=== PATIENT | male | born 1965 | race African-American/Black ===

== ENCOUNTER 2018-04-09 12:32 | Inpatient (IN) | payer OTHER ==
[~2018-04-09 12:32] MED LIST: CEFAZOLIN 2 GM/D5W 2 GM/50 ML ML IVPB ONE
--- NOTE | 2018-04-09 13:08 | PDOC ---
History of Present Illness - General Stated Complaint: ABD PAIN Time Seen by Provider: 04/09/18 12:38 History Source: Patient - History of Present Illness Initial Comments: 04/09/18 13:03 Pt is a 52yo M with PMH of HTN, DM, Asthma BIBA for abdominal pain and chest pain. Pt states around 1 hour ago he was walking when he broke out into a sweat , started feeling nauseous and developed diffuse abdominal pain and chest pain. He also started to feel short of breath. Denies cough, hemoptysis, back pain, neck pain, syncope, palpitations, fevers, chills, vomiting, diarrhea, constipation, urinary symptoms, headache, numbness/tingling. He states that he only takes his medications when he feels like it. Denies alcohol, tobacco, IV and illicit drug use. PMD: Tosha? PMH: see hpi PSH: none Meds: ? Allergies: nkda Social: denies Past History - Past Medical History Allergies/Adverse Reactions: Allergies Allergy/AdvReac Type Severity Reaction Status Date / Time No Known Drug Allergies Allergy Verified 04/09/18 13:14 Home Medications: Ambulatory Orders NK [No Known Home Medication] 04/09/18 Review of Systems - Review of Systems Constitutional: No: Chills, Fever HEENTM: No: Symptoms Reported Respiratory: Yes: Shortness of Breath Cardiac (ROS): Yes: Chest Pain. No: Lightheadedness, Palpitations, Syncope ABD/GI: Yes: Nausea, Abdominal cramping. No: Constipated, Diarrhea, Rectal Bleeding, Vomiting : No: Burning, Dysuria Musculoskeletal: No: Back Pain, Joint Pain, Neck Pain Integumentary: No: Symptoms Reported Neurological: No: Headache, Numbness, Paresthesia, Tingling *Physical Exam - Physical Exam General Appearance: Yes: Nourished, Appropriately Dressed, Other (somnolent). No: Apparent Distress HEENT: positive: EOMI, SULAIMAN, Normal ENT Inspection, Pharynx Normal Neck: positive: Trachea midline, Supple. negative: Carotid bruit, Lymphadenopathy (R), Lymphadenopathy (L) Respiratory/Chest: positive: Lungs Clear, Normal Breath Sounds. negative: Crackles, Rales, Rhonchi, Stridor, Wheezing Cardiovascular: positive: Regular Rhythm, Regular Rate, S1, S2. negative: Edema , JVD, Murmur Vascular Pulses: Carotid (R): 2+, Carotid (L): 2+, Dorsalis-Pedis (R): 2+, Doralis-Pedis (L): 2+ Gastrointestinal/Abdominal: positive: Tender (diffuse tenderness with light palpation), Soft. negative: Pulsatile Mass, Guarding, Rebound, Hernia, Mass Musculoskeletal: negative: CVA Tenderness Extremity: positive: Normal Capillary Refill, Pelvis Stable. negative: Pedal Edema, Swelling Integumentary: positive: Normal Color, Dry, Warm Neurologic: positive: relay tester II-XII NML intact, Fully Oriented, Alert, Normal Mood/ Affect, Motor Strength 07/18 ED Treatment Course - LABORATORY CBC & Chemistry Diagram: 04/09/18 13:20 04/09/18 13:38 - RADIOLOGY Radiology Studies Ordered: Category Date Time Status CHEST X-RAY PORTABLE* [RAD] Stat Radiology 04/09/18 13:00 Ordered Medical Decision Making - Medical Decision Making 04/09/18 13:19 Pt is a 52yo M with PMH of HTN, DM, Asthma BIBA for abdominal pain and chest pain. Pt states around 1 hour ago he was walking when he broke out into a sweat , started feeling nauseous and developed diffuse abdominal pain and chest pain. Vitals: BP 146/112, afebile, saturating well on RA PE: diffuse abdominal tenderness Ddx includes but not limited to Dissection, AAA, ACS, PNA, gastritis, colitis Higher suspicion for ACS causes. cbc, cmp, trop, coag, t+s ordered. EKG, CXR CTA chest and abdomen pelvis ordered IV tylenol for pain. labs significant for WBC 15.3 Cr 1.4, not sure what is pt baseline CT pending. BP elevated. Pt thinks he takes lisinopril. Cr 1.4. will give labetalol 100mg. CT shows pneumoperitioneum. Dr. Santana consulted. Recommended OR. Will admit. Pt will go to OR. *DC/Admit/Observation/Transfer Diagnosis at time of Disposition: Perforated abdominal viscus - Discharge Dispostion Condition at time of disposition: Stable Decision to Admit order: Yes - Referrals - Patient Instructions - Post Discharge Activity
[2018-04-09 13:14] VITALS: BMI 32.5
[2018-04-09] MEDS ORDERED: ACETAMINOPHEN 1000 MG/100 ML VIAL (NON FORMULARY) IVPB ONE (13:15)
[2018-04-09] MEDS ORDERED: SODIUM CHLORIDE 1,000 ML IV STA (13:15)
[2018-04-09] MEDS ORDERED: ACETAMINOPHEN INJECTION 100 ML IVPB ONE ×3 (13:18→22:45)
[2018-04-09] MEDS ORDERED: METOCLOPRAMIDE HCL INJECTION 10 MG/2 ML VIAL IVPUSH ONE (13:20)
[2018-04-09] MEDS ORDERED: METOCLOPRAMIDE HCL INJECTION 10 MG/2 ML VIAL ONE (13:34)
--- NOTE | 2018-04-09 14:07 | PDOC ---
Attending Attestation - HPI HPI: 04/09/18 14:07 The patient is a 52 year old male with a past medical history of HTN, diabetes, and asthma (patient non compliant with medication) brought in today by EMS today for evaluation of abdominal pain and shortness of breath. The patient reports that he was walking 1 hour ago when he felt a sudden onset of diffuse abdominal pain, diaphoresis, chest pain, nausea, and shortness of breath. He notes his symptoms are worse with movement. He called 911 after his symptoms began. Patient denies headache, lightheadedness. Denies fever, chills. Denies vomiting , diarrhea. Denies lower extremity edema. Social history: Patient denies alcohol and drug use. Patient confirms occasional tobacco use. PCP: none reported - Physicial Exam PE: 04/09/18 14:07 Vitals: Triage vital signs reviewed General Appearance: No acute distress, well nourished, well developed Head: Atraumatic Chest Wall: Nontender Cardiac: Regular rate and rhythm, no murmurs, no rubs, no gallops Lungs: Clear to auscultation bilateral, good air movement bilaterally Abdomen: +diffuse abdominal tenderness with maximum tenderness in the right lower quadrant. Soft, nondistended, normal bowel sounds Extremities: Full range of motion to all extremities, no cyanosis, clubbing, or edema Skin: Warm and dry, no rashes or lesions, no rash, no petechiae Psych: Normal mood, normal affect - Medical Decision Making 04/09/18 14:07 Documentation prepared by JAUN Sierra, acting as medical reviewer for Ruben Odell MD. The patient is a 52 year old male with a past medical history of HTN, diabetes, and asthma (patient non compliant with medication) brought in today by EMS today for evaluation of abdominal pain and shortness of breath. <León Garcia - Last Filed: 04/09/18 14:07> - Resident Resident Name: Celina Mart - ED Attending Attestation I have performed the following: I have examined & evaluated the patient, The case was reviewed & discussed with the resident, I agree w/resident's findings & plan, Exceptions are as noted - Medical Decision Making 04/09/18 16:08 Heart score for chest and abdominal discomfort with a diffuse abdominal pain differential diagnosis includes ACS acute abdominal process versus less likely dissection Equal pulses in all extremities however given this combination of symptomatology we'll check labs EKG troponin CTA chest abdomen pelvis to rule out life-threatening etiology Dr. Mckinnon to follow up CTA and dispo <Ruben Odell - Last Filed: 04/09/18 16:09> Heart Score/ECG Review - History History: Moderately suspicious - Electrocardiogram EKG: Normal - Age Age: 45-65 - Risk Factors Risk Factors Heart Score: Yes Hx Hypercholesterolemia, Yes Hx Hypertension, Yes Hx Diabetes Based on the list above the patient has:: >/=3 risk factors or Hx atherosclerotic disease - Troponin Troponin: </= normal limit - Score Heart Score - Total: 4 - ECG Impressions Comment:: 04/09/18 16:07 EKG performed at 1304 demonstrates normal sinus rhythm incomplete right bundle- branch block no ST elevations or T-wave inversions. Interpreted by me. <Ruben Odell - Last Filed: 04/09/18 16:09>
[2018-04-09 14:20] LABS: BASO % 0.2 % (0-2.0); EOS % 0.2 % (0-4.5); HEMATOCRIT 40.9 % (35.4-49); HEMOGLOBIN 13.9 GM/dL (11.7-16.9); MEAN CELL VOLUME 94.1 fl (80-96); MEAN PLT VOLUME 8.7 fl (7.5-11.1); MONO % 4.9 % (3.8-10.2); NEUT % 87.7 % (42.8-82.8); PLATELET COUNT 216 K/MM3 (134-434); RBC 4.35 M/mm3 (4.00-5.60); RDW 15.3 % (11.9-15.9); WHITE BLOOD COUNT 15.3 K/mm3 (4.0-10.0)
[2018-04-09 14:39] LABS: ALBUMIN 3.8 g/dl (3.4-5.0); ALK PHOS 96 U/L (45-117); ANION GAP 7 MMOL/L (8-16); BILIRUBIN,TOTAL 0.7 mg/dL (0.2-1); BLOOD UREA NITROGEN 24 mg/dL (7-18); CHLORIDE 102 mmol/L (98-107); CO2 31 mmol/L (21-32); CREATININE 1.4 mg/dL (0.55-1.3); GLUCOSE,RANDOM 83 mg/dL (74-106); LIPASE 123 U/L (73-393); POTASSIUM 3.6 mmol/L (3.5-5.1); SGOT/AST 23 U/L (15-37); SGPT/ALT 29 U/L (13-61); SODIUM 140 mmol/L (136-145)
[2018-04-09 14:46] LABS: INR 1.14 (0.83-1.09); PROTHROMBIN TIME (PATIENT) 13.5 SEC (9.7-13.0)
--- NOTE | 2018-04-09 15:52 | EKG ---
Test Reason : Blood Pressure : / mmHG Vent. Rate : 088 BPM Atrial Rate : 088 BPM P-R Int : 152 ms QRS Dur : 102 ms QT Int : 386 ms P-R-T Axes : 059 -13 039 degrees QTc Int : 467 ms NORMAL SINUS RHYTHM NORMAL ECG NO PREVIOUS ECGS AVAILABLE Confirmed by IAN SHEPHERD, DANIELLE ([id number]) on 04/09/2018 3:52:20 PM Referred By: Confirmed By:DANIELLE SOSA MD
[2018-04-09] MEDS ORDERED: LABETALOL HCL 100 MG TABLET (FP) PO ONE (16:24)
[2018-04-09] MEDS ORDERED: LABETALOL HCL 100 MG TABLET (FP) ONE (16:38)
--- NOTE | 2018-04-09 19:53 | PN ---
Teaching Attending Note Name of Resident: Garett Gaspar ATTENDING PHYSICIAN STATEMENT I saw and evaluated the patient. I reviewed the resident's note and discussed the case with the resident. I agree with the resident's findings and plan as documented. SUBJECTIVE: Seen and examined; please see resident note for further historical details. At 2PM 10/10 intensity R_sided then genaralized abdominal pain and called 911 due to this. He was ambulating, no trauma, etc. Last BM yesterday normal caliber no blood, etc. No dietary changes. Doesn't abuse NSAIDS. He was found on CT done in ER to have pneumoperitoneum with fluid around the duodenum. The pain he experienced wasn't related to food. No history of surgeries. Limited history regarding this as he was being rushed to the OR. VS initially were afebrile with normotension to HTN; got APAP in the ER. Dr. Santana is following ; appreciate the specialist presence on the case. 10 sys ROS done and negative aside from HPI PMH (HTN, DM, Asthma); denied PSH FH asked and noncontributory Social hx reviewed Medication list pending; this is his first time here and he states he doesn't take any home meds for the HTN or DM. Needs further investigated. OBJECTIVE: VS, labs, imaging reviewed Mild distress, AAO, resting in bed NC AT EOMI PERRLA Abdomen tender diffusely with rebound and guarding RRR s1/2 no mgr Lungs CTAB w/ sym exp CN2-12 wnl, no fnd Normal mood, appropriate affect CT shows pneumoperitoneum and some free intraperitoneal fluid in the right upper abdomen. No CT evidence of dissection or aneurysm. 3mm nonobstructing right renal calculus. Mild bilateral adrenal gland thickening probably representing hyperplasia vs. subcentimeter adenomas. Biochemical testing suggested as well as [address]/MRI followup. ASSESSMENT AND PLAN: Patient presents with bowel perforation; is in OR now with Dr. Santana. Plan for broad spectrum abx, fluids, identification for source of the perf and treatment. 1) Bowel Perforation -Cause unknown at this time; given the duodenal involvement on the CT will need to r/o ulcers, etc. Waiting on surgical report and will discuss with surgical team. In the interem will cover with broad spectrum abx and depending on operative results and post op stability will decide dispo. He will be covered with Zosyn and we will consult ID. We will start him on IV PPI QD. Of course, we will adjust overall therapy based on the cause of the said perforation. 2) JOSE ANTONIO -Cr 1.4; likely prerenal given the global picture. He does have risks for CKD though so this could be pharmaceutical representative of a baseline for him. We will plan to trend the BMP and monitor his urine output. 3) HTN -Keep BP <160 when inpatinet; use PRNs. Eval if will need home meds on DC 4) DM -SSI; keep fsg <180 5) Adrenal gland thickening -OP Biochemical testing and 3 month FU imaging 6) Nonobstructing R-renal calculus -Noted; address if any additional sx, etc. DANDREA -LR@100 -PRN replete -NPO -Bedrest for now DVT px: Hep SQ starting tomorrow Full Code
[2018-04-09] MEDS ORDERED: LACTATED RINGERS SOLUTION 1,000 ML/1,000 ML INFUS.BAG IV SCH (20:00)
--- NOTE | 2018-04-09 20:17 | CONSULT ---
- Consultation REQUESTING PROVIDER: Terrence Thrasher MD CONSULT REQUEST: We have been asked to surgically evaluate this patient for ( specify). PCP:Gideon Arnold MD HISTORY OF PRESENT ILLNESS:CTSP for evaluation and management of upper abdominal pain found to be secondary to pneumoperitoneum; patient developed sudden onset epigastriac/RUQ abdominal pain w/ radiation to the back. He had associated CP and SOB and nausea w/o vomiting; he came to the ER for evaluation. PMHx: he cannot state PSHx: none Home Medications Medication Instructions Recorded Unobtainable 04/09/18 Allergies Allergy/AdvReac Type Severity Reaction Status Date / Time No Known Drug Allergies Allergy Verified 04/09/18 13:14 REVIEW OF SYSTEMS: unobtainable; patient was not cooperative PHYSICAL EXAM: GENERAL: Awake, alert, and fully oriented, in acute distress. HEAD: Normal with no signs of trauma. EYES: sclera anicteric, conjunctiva clear. NECK: Normal ROM, supple without lymphadenopathy, JVD, or masses. ABDOMEN: Soft,tender, distended, absent bowel sounds, positive guarding, positive rebound, no masses. No organomegaly.? RIH MUSCULOSKELETAL: Normal ROM at all joints. No bony deformities or tenderness. No CVA tenderness. UPPER EXTREMITIES: 2+ pulses, warm, well-perfused. No cyanosis. Cap refill <2 seconds. No peripheral edema. LOWER EXTREMITIES: 2+ pulses, warm, well-perfused. No calf tenderness. No peripheral edema. NEUROLOGICAL: Normal speech, gait not observed. PSYCH: Fairly Cooperative. Poor eye contact. Appropriate mood and affect. SKIN: Warm, dry, normal turgor, no rashes or lesions noted. Vital Signs Temperature 98.5 F 04/09/18 18:15 Pulse Rate 86 04/09/18 18:15 Respiratory Rate 16 04/09/18 18:15 Blood Pressure 152/100 04/09/18 18:15 O2 Sat by Pulse Oximetry (%) 97 04/09/18 18:15 Lab Results WBC 15.3 K/mm3 (4.0-10.0) H 04/09/18 13:20 RBC 4.35 M/mm3 (4.00-5.60) 04/09/18 13:20 Hgb 13.9 GM/dL (11.7-16.9) 04/09/18 13:20 Hct 40.9 % (35.4-49) 04/09/18 13:20 MCV 94.1 fl (80-96) 04/09/18 13:20 MCHC 34.0 g/dl (32.0-35.9) 04/09/18 13:20 RDW 15.3 % (11.9-15.9) 04/09/18 13:20 Plt Count 216 K/MM3 (134-434) 04/09/18 13:20 Sodium 140 mmol/L (136-145) 04/09/18 13:38 Potassium 3.6 mmol/L (3.5-5.1) 04/09/18 13:38 Chloride 102 mmol/L (98-107) 04/09/18 13:38 Carbon Dioxide 31 mmol/L (21-32) 04/09/18 13:38 Anion Gap 7 MMOL/L (8-16) L 04/09/18 13:38 BUN 24 mg/dL (7-18) H 04/09/18 13:38 Creatinine 1.4 mg/dL (0.55-1.3) H 04/09/18 13:38 Random Glucose 83 mg/dL (74-106) 04/09/18 13:38 Calcium 9.0 mg/dL (8.5-10.1) 04/09/18 13:38 Blood Type B POSITIVE 04/09/18 18:42 Antibody Screen Negative 04/09/18 13:44 INR 1.14 (0.83-1.09) H 04/09/18 13:38 Imamging w/u to date reviewed w/ Radiologist and c/w pneumoperitoneum. PLAN: For ex-lap possible Edwardo patch closure of perforated DU and AOSDN; informed consent obtained; r/b/t//a's d/w him and informed consent obtained. Wily Santana MD FACS
--- NOTE | 2018-04-09 20:20 | HP ---
CHIEF COMPLAINT: Abdominal pain PCP: Dr. Quiles HISTORY OF PRESENT ILLNESS: 52 yo M with history of HTN, DM, and asthma who presents today with diffuse severe 10/10 abdominal pain which happened suddenly while walking around 2pm today. Pt reports his last BM was yesterday with normal caliber and quality without any blood. Pt denies any associated pain with meals prior to this event. Pt denies any surgeries. Pt reports having any unusual foods at this point and has stuck to a regular diet without dining at any exotic locations. He denies any prior endoscopies to date and has never been told he had H. Pylori before. Pt denies any n/v currently, headaches, lightheadedness, SOB, CP/ discomfort, palpitations, diarrhea, constipation, dysuria, polyuria. Of note, pt has never been told he has kidney problems in the past and has never had urological procedures performed. Recent Travel: Denies PAST MEDICAL HISTORY: HTN DM Asthma --No medications reported by patient PAST SURGICAL HISTORY: None Social History: Smoking: denies Alcohol: Denies Drugs: Denies Family History: Noncontributory Allergies No Known Drug Allergies Allergy (Verified 04/09/18 13:14) HOME MEDICATIONS: Home Medications Medication Instructions Recorded Unobtainable 04/09/18 REVIEW OF SYSTEMS As per HPI PHYSICAL EXAMINATION Vital Signs - 24 hr 04/09/18 04/09/18 04/09/18 13:05 14:29 14:35 Temperature 98.1 F Pulse Rate 86 Pulse Rate [ 94 H Apical] Respiratory 18 20 Rate Blood Pressure 146/112 H Blood Pressure 180/108 H [Left Arm] O2 Sat by Pulse 97 97 98 Oximetry (%) 04/09/18 04/09/18 16:49 18:15 Temperature 98.5 F Pulse Rate Pulse Rate [ 95 H 86 Apical] Respiratory 16 16 Rate Blood Pressure Blood Pressure 168/101 H 152/100 [Left Arm] O2 Sat by Pulse 98 97 Oximetry (%) GENERAL: NAD, awake, alert, and fully oriented HEENT: NC/AT, MARGARITO, sclera anicteric, MMM NECK: No JVD LUNGS: CTA bilaterally. No wheezes, and no crackles. No accessory muscle use. On RA HEART: RRR, normal S1 and S2 without murmur ABDOMEN: Soft, nondistended, diffusely tender with R>L, bowel sounds absent, guarding present, no ecchymotic areas noted. No masses appreciated. MUSCULOSKELETAL: No CVA tenderness. EXTREMITIES: 2+ distal pulses throughout, warm, well-perfused. No peripheral edema. NEUROLOGICAL: nonfocal exam. speech normal. gait not observed PSYCHIATRIC: Cooperative. Good eye contact. Appropriate mood and affect. SKIN: Warm, dry, no rashes or lesions noted Laboratory Results 04/09/18 04/09/18 04/09/18 13:20 13:38 13:38 WBC 15.3 H RBC 4.35 Hgb 13.9 Hct 40.9 MCV 94.1 MCH 32.0 MCHC 34.0 RDW 15.3 Plt Count 216 MPV 8.7 Absolute Neuts (auto) 13.4 H Neutrophils % 87.7 H Lymphocytes % 7.0 L Monocytes % 4.9 Eosinophils % 0.2 Basophils % 0.2 Nucleated RBC % 0 PT with INR INR Sodium 140 Potassium 3.6 Chloride 102 Carbon Dioxide 31 Anion Gap 7 L BUN 24 H Creatinine 1.4 H Creat Clearance w eGFR 53.43 Random Glucose 83 Calcium 9.0 Total Bilirubin 0.7 AST 23 ALT 29 Alkaline Phosphatase 96 Troponin I < 0.02 Total Protein 8.0 Albumin 3.8 Lipase 123 Blood Type Antibody Screen ASSESSMENT/PLAN: Bowel perforation likely 2/2 to duodenal ulceration Hypertension Diabetes Mellitus Acute vs. chronic kidney dysfunction Renal Cyst Incidental adrenal pathology --Pneumoperitoneum and free fluid around duodenum found on CT indicative of bowel perforation likely 2/2 to duodenal ulceration --Surgery on board; to be taken to OR tonight --F/u OR reports --If ulceration confirmed will likely need H. Pylori testing --Avoid any NSAID use at this point --Pain control post-op per surgery --LR @100cc/hr --Protonix 40mg qDaily --Cover with Zosyn 3.375gm q8h IVPB for coverage including anaerobe --HTN noted on initial VS, however likely 2/2 to pain; goal <160 systolic ideal --Monitor after pain control and can use PRN medications if needed --Pt reports no medication use at home --BGM ACHS and can use ISS for coverage with goal <180 during hospitalization --A1c ordered for AM labs --Renal cyst 10.7cm on CT A/P found; will need follow-up on an outpatient basis --Adrenal thickening found incidentally on CT A/P will need 3 mo. f/u of CT vs. MRI on an outpatient basis FEN: Fluids: As above Electrolyte abnormalities: None Nutrition: Strict NPO PPX: DVT - SCDs for now GI - As above Code status: Full code Dispo: Admit to telemetry Case discussed with Dr. Catalina Gaspar, DO - IM PGY-2 Visit type - Emergency Visit Emergency Visit: Yes ED Registration Date: 04/09/18 Care time: The patient presented to the Emergency Department on the above date and was hospitalized for further evaluation of their emergent condition. - New Patient This patient is new to me today: Yes Date on this admission: 04/09/18 - Critical Care Critical Care patient: No
[2018-04-09] MEDS ORDERED: ceFAZolin 2 GRAM PREMIX BAG IVPB ONE (20:59)
[2018-04-09] MEDS ORDERED: fentaNYL CITRATE 250 MCG/5 ML VIAL ONE ×2 (21:03)
[2018-04-09] MEDS ORDERED: PROPOFOL 20 ML ONE (21:04)
[2018-04-09] MEDS ORDERED: MIDAZOLAM HCL 2 MG/2 ML SINGLE DOSE VIAL ONE (21:04)
[2018-04-09] MEDS ORDERED: ROCURONIUM BROMIDE 50 MG/5 ML VIAL ONE (21:04)
[2018-04-09] MEDS ORDERED: CEFAZOLIN 2 GM/D5W 2 GM/50 ML ML IVPB ONE ×2 (21:15→23:13)
[2018-04-09] MEDS ORDERED: LIDOCAINE HCL/PF 2% SDV 5ML VIAL ONE (21:36)
[2018-04-09] MEDS ORDERED: ceFAZolin SODIUM 1 GM VIAL IVPB ONE (21:36)
[2018-04-09] MEDS ORDERED: ceFAZolin SODIUM 1 GM VIAL ONE (21:36)
[2018-04-09] MEDS ORDERED: DEXAMETHASONE SOD PHOSPHATE 4 MG/1 ML VIAL ONE (21:36)
[2018-04-09] MEDS ORDERED: ONDANSETRON 4 MG/2 ML VIAL ONE ×2 (21:36→22:14)
[2018-04-09] MEDS ORDERED: NEOSTIGMINE METHYLSULFATE 0.5 MG/1 ML - 10 ML MDV ONE (22:13)
[2018-04-09] MEDS ORDERED: GLYCOPYRROLATE 0.2 MG/1 ML VIAL ONE (22:14)
--- NOTE | 2018-04-09 22:26 | OP ---
Operative Note - Note: Operative Date: 04/09/18 Pre-Operative Diagnosis: perforated viscus Operation: laparotomy; Edwardo patch closure of perforated pyloric channel ulcer Findings: perforated pyloric channel ulcer Post-Operative Diagnosis: Other (perforated pyloric channel ulcer) Surgeon: Wily Santana Curator [employer]: Raúl Jaramillo Anesthesiologist/GAS MAIN FITTER: Cyndee Ag Anesthesia: General Estimated Blood Loss (mls): 20
--- NOTE | 2018-04-09 22:34 | SURG ---
Surgery Slide Fastener Chain Assembler Note Slide Fastener Chain Assembler: Raúl Jaramillo PA-C Date of Service: 04/09/18 Diagnosis: perforated viscus Procedure: laparotomy; Edwardo patch closure of perforated pyloric channel ulcer I was present for the entirety of the operative procedure. For further detail, please refer to operative report. Visit type - Case Type Case Type: ED Admission - Emergency Emergency Visit: Yes ED Registration Date: 04/09/18 Care time: The patient presented to the Emergency Department on the above date and was hospitalized for further evaluation of their emergent condition. - New patient This patient is new to me today: Yes Date on this admission: 04/09/18
[2018-04-09] MEDS ORDERED: ONDANSETRON 4 MG/2 ML VIAL IVPUSH PRN (22:36)
[2018-04-09] MEDS ORDERED: LABETALOL HCL 5 MG/1 ML (100MG/20 ML VIAL) IVPUSH PRN (22:38)
[2018-04-09] MEDS: LACTATED RINGERS SOLUTION 1,000 ML IV SCH (22:45)
[2018-04-09] MEDS: HYDROmorphone *PCA* 10MG/50ML DISP.SYRIN PCA SCH (22:55)
[2018-04-09] MEDS: ACETAMINOPHEN 1000 MG/100 ML VIAL (NON FORMULARY) IVPB ONE (23:44)
[2018-04-10] MEDS: HYDROmorphone *PCA* 10MG/50ML DISP.SYRIN PCA SCH ×2 (00:33→21:55)
[2018-04-10] MEDS: ACETAMINOPHEN 1000 MG/100 ML VIAL (NON FORMULARY) IVPB ONE (00:34)
[2018-04-10] MEDS: LACTATED RINGERS SOLUTION 1,000 ML IV SCH ×3 (04:03→21:54)
[2018-04-10] MEDS ORDERED: CEFAZOLIN 2 GM/D5W 2 GM/50 ML ML IVPB ONE (06:00)
[2018-04-10 07:34] LABS: BASO % 0.1 % (0-2.0); HEMATOCRIT 36.7 % (35.4-49); HEMOGLOBIN 12.6 GM/dL (11.7-16.9); LYMPH % 7.8 % (8-40); MCH 32.2 pg (25.7-33.7); MCHC 34.3 g/dl (32.0-35.9); MEAN CELL VOLUME 93.9 fl (80-96); MEAN PLT VOLUME 8.7 fl (7.5-11.1); MONO % 5.8 % (3.8-10.2); NEUT % 86.3 % (42.8-82.8); PLATELET COUNT 187 K/MM3 (134-434); RBC 3.91 M/mm3 (4.00-5.60); RDW 14.8 % (11.9-15.9); WHITE BLOOD COUNT 13.9 K/mm3 (4.0-10.0)
[2018-04-10 08:13] LABS: ALBUMIN 2.7 g/dl (3.4-5.0); ALK PHOS 72 U/L (45-117); ANION GAP 9 MMOL/L (8-16); BILIRUBIN,TOTAL 0.7 mg/dL (0.2-1); BLOOD UREA NITROGEN 23 mg/dL (7-18); CALCIUM 8.2 mg/dL (8.5-10.1); CHLORIDE 102 mmol/L (98-107); CO2 28 mmol/L (21-32); CREATININE 1.3 mg/dL (0.55-1.3); GLUCOSE,RANDOM 127 mg/dL (74-106); POTASSIUM 3.9 mmol/L (3.5-5.1); SGOT/AST 21 U/L (15-37); SGPT/ALT 29 U/L (13-61); SODIUM 138 mmol/L (136-145); TOT PROT 6.2 g/dl (6.4-8.2)
--- NOTE | 2018-04-10 09:41 | PN ---
Progress Note (short form) - Note Progress Note: Post op day#!.S/P Expl Lapratomy with repair of perforated ulcer under GA uneventfu.Patient stable and c/o pain score of 6-7/10 on Dilaudai RESEARCH PHYSICIST but is not using RESEARCH PHYSICIST properly.So advised the patient to push the RESEARCH PHYSICIST or you will not get the medication.Will continue RESEARCH PHYSICIST and will f/u tomorrow.
[2018-04-10] MEDS ORDERED: PT OWN MED DRAWER 7, Y5N ONE (09:47)
[2018-04-10] MEDS: PANTOPRAZOLE SODIUM 40 MG VIAL IVPUSH SCH (09:50)
[2018-04-10] MEDS ORDERED: PANTOPRAZOLE SODIUM 40 MG VIAL IVPUSH SCH (10:00)
[2018-04-10] MEDS ORDERED: PIPERACILLIN/TAZOB 3.375 GM 3.375 GM in DEXTROSE 5%-WATER - 50 ML IVPB SCH (10:00)
--- NOTE | 2018-04-10 13:20 | PN ---
Physical Exam: SUBJECTIVE: Patient seen and examined. He has no complaints. Pain is controlled. OBJECTIVE: Vital Signs Period Temp Pulse Resp BP Sys/Romero Pulse Ox Last 24 Hr 97.4 F-99 F 54-130 14-20 105-180/64-114 90-100 GENERAL: The patient is awake, alert, and fully oriented, in no acute distress. LUNGS: Breath sounds equal, clear to auscultation bilaterally, no wheezes, no crackles, no accessory muscle use. HEART: Regular rate and rhythm, S1, S2 without murmur, rub or gallop. ABDOMEN: Obese, soft, non-tender, (+) mild distention, no bowel sounds, no guarding, no rebound, no hepatosplenomegaly, no masses. EXTREMITIES: 2+ pulses, warm, well-perfused, no edema. Laboratory Results - last 24 hr 04/09/18 04/09/18 04/09/18 13:20 13:38 13:38 WBC 15.3 H RBC 4.35 Hgb 13.9 Hct 40.9 MCV 94.1 MCH 32.0 MCHC 34.0 RDW 15.3 Plt Count 216 MPV 8.7 Absolute Neuts (auto) 13.4 H Neutrophils % 87.7 H Lymphocytes % 7.0 L Monocytes % 4.9 Eosinophils % 0.2 Basophils % 0.2 Nucleated RBC % 0 PT with INR INR Sodium 140 Potassium 3.6 Chloride 102 Carbon Dioxide 31 Anion Gap 7 L BUN 24 H Creatinine 1.4 H Creat Clearance w eGFR 53.43 POC Glucometer Random Glucose 83 Hemoglobin A1c % Calcium 9.0 Phosphorus Magnesium Total Bilirubin 0.7 AST 23 ALT 29 Alkaline Phosphatase 96 Troponin I < 0.02 Total Protein 8.0 Albumin 3.8 Lipase 123 Blood Type Antibody Screen 04/09/18 04/09/18 04/09/18 13:38 13:44 18:42 WBC RBC Hgb Hct MCV MCH MCHC RDW Plt Count MPV Absolute Neuts (auto) Neutrophils % Lymphocytes % Monocytes % Eosinophils % Basophils % Nucleated RBC % PT with INR 13.50 H INR 1.14 H Sodium Potassium Chloride Carbon Dioxide Anion Gap BUN Creatinine Creat Clearance w eGFR POC Glucometer Random Glucose Hemoglobin A1c % Calcium Phosphorus Magnesium Total Bilirubin AST ALT Alkaline Phosphatase Troponin I Total Protein Albumin Lipase Blood Type B POSITIVE B POSITIVE Antibody Screen Negative 04/09/18 04/10/18 04/10/18 23:30 05:39 07:00 WBC 13.9 H RBC 3.91 L Hgb 12.6 Hct 36.7 MCV 93.9 MCH 32.2 MCHC 34.3 RDW 14.8 Plt Count 187 MPV 8.7 Absolute Neuts (auto) 12.0 H Neutrophils % 86.3 H Lymphocytes % 7.8 L Monocytes % 5.8 Eosinophils % 0.0 D Basophils % 0.1 Nucleated RBC % 0 PT with INR INR Sodium Potassium Chloride Carbon Dioxide Anion Gap BUN Creatinine Creat Clearance w eGFR POC Glucometer 131 146 Random Glucose Hemoglobin A1c % Calcium Phosphorus Magnesium Total Bilirubin AST ALT Alkaline Phosphatase Troponin I Total Protein Albumin Lipase Blood Type Antibody Screen 04/10/18 04/10/18 07:00 07:00 WBC RBC Hgb Hct MCV MCH MCHC RDW Plt Count MPV Absolute Neuts (auto) Neutrophils % Lymphocytes % Monocytes % Eosinophils % Basophils % Nucleated RBC % PT with INR INR Sodium 138 Potassium 3.9 Chloride 102 Carbon Dioxide 28 Anion Gap 9 BUN 23 H Creatinine 1.3 Creat Clearance w eGFR 58.20 POC Glucometer Random Glucose 127 H Hemoglobin A1c % 6.2 Calcium 8.2 L Phosphorus 5.0 H Magnesium 2.0 Total Bilirubin 0.7 AST 21 ALT 29 Alkaline Phosphatase 72 Troponin I Total Protein 6.2 L Albumin 2.7 L Lipase Blood Type Antibody Screen Active Medications Generic Name Dose Route Start Last Admin Trade Name Freq PRN Reason Stop Dose Admin Hydromorphone HCl 10 mg 04/09/18 22:45 04/10/18 00:33 Dilaudid Ledger Clerk - BIOFUELS MANAGER 04/12/18 22:36 Not Given BIOFUELS MANAGER [facility] Protocol Lactated Ringer's 1,000 mls @ 125 mls/hr 04/09/18 22:45 04/10/18 12:53 Lactated Ringers Solution IV 125 mls/hr ASDIR MONICA Administration Labetalol HCl 10 mg 04/09/18 22:38 04/09/18 22:30 Normodyne Injection - IVPUSH 10 mg [id number] PRN Administration HYPERTENSION Ondansetron HCl 4 mg 04/09/18 22:36 Zofran Injection IVPUSH Q6H PRN NAUSEA AND/OR VOMITING Pantoprazole Sodium 40 mg 04/10/18 10:00 04/10/18 09:50 Protonix Iv IVPUSH 40 mg DAILY MONICA Administration ASSESSMENT/PLAN: This is a 52 year old man with a history of HTN, type 2 DM, asthma who presented to the ED with abdominal pain. 1. Perforated pyloric channel ulcer - s/p Edwardo patch repair 04/09 - Maintain NPO - Continue Protonix IV - Maintain NG tube - Continue IV fluid - Pain control with Dilaudid BIOFUELS MANAGER 2. HTN - Continue Labetalol as needed 3. Asthma - Stable 4. Type 2 DM - Start Novolog sliding scale 5. Probable stage 3 CKD 6. Probable bilateral adrenal hyperplasia 7. Right renal stone, non-obstructing Visit type - Emergency Visit Emergency Visit: Yes ED Registration Date: 04/09/18 Care time: The patient presented to the Emergency Department on the above date and was hospitalized for further evaluation of their emergent condition. - New Patient This patient is new to me today: Yes Date on this admission: 04/10/18 - Critical Care Critical Care patient: No - Discharge Referral Referred to [facility] No
[2018-04-10] MEDS: INSULIN SLIDING SCALE (NOVOLOG) 1 VIAL SQ SCH ×2 (17:27→21:50)
--- NOTE | 2018-04-10 19:56 | PN ---
Progress Note (short form) - Note Progress Note: Attending Surgeon POD #1 No c/o; on TELEPHONER; more alert and cohesive today VSS AF abdo-soft; slightly ditended incision c/d/i extrems-warm; no calf tendereness labs noted NGT output noted IMP:stable post op PLAN: OOB/NPO/IVF/NGT/PPI/labs Wily Santana MD FACS
[2018-04-11] MEDS: LACTATED RINGERS SOLUTION 1,000 ML IV SCH ×2 (06:11→18:40)
[2018-04-11] MEDS: INSULIN SLIDING SCALE (NOVOLOG) 1 VIAL SQ SCH ×4 (06:22→21:21)
[2018-04-11 07:12] LABS: BASO % 0.1 % (0-2.0); EOS % 0.1 % (0-4.5); HEMATOCRIT 38.8 % (35.4-49); HEMOGLOBIN 13.3 GM/dL (11.7-16.9); LYMPH % 12.7 % (8-40); MCHC 34.2 g/dl (32.0-35.9); MEAN CELL VOLUME 93.6 fl (80-96); MEAN PLT VOLUME 8.8 fl (7.5-11.1); MONO % 8.7 % (3.8-10.2); NEUT % 78.4 % (42.8-82.8); PLATELET COUNT 185 K/MM3 (134-434); RBC 4.14 M/mm3 (4.00-5.60); WHITE BLOOD COUNT 12.5 K/mm3 (4.0-10.0)
[2018-04-11 07:36] LABS: ANION GAP 7 MMOL/L (8-16); BLOOD UREA NITROGEN 14 mg/dL (7-18); CALCIUM 8.1 mg/dL (8.5-10.1); CHLORIDE 100 mmol/L (98-107); CO2 32 mmol/L (21-32); CREATININE 1.1 mg/dL (0.55-1.3); GLUCOSE,RANDOM 85 mg/dL (74-106); POTASSIUM 3.7 mmol/L (3.5-5.1); SODIUM 138 mmol/L (136-145)
[2018-04-11] MEDS: PANTOPRAZOLE SODIUM 40 MG VIAL IVPUSH SCH (10:43)
--- NOTE | 2018-04-11 12:12 | PN ---
Physical Exam: SUBJECTIVE: Patient seen and examined this AM. He states his pain is well controlled and that he is doing okay today. He is wondering how long the NG tube has to be in place. OBJECTIVE: Vital Signs Period Temp Pulse Resp BP Sys/Romero Pulse Ox Last 24 Hr 97.1 F-98.9 F 60-84 14-20 135-158/76-88 97 GENERAL: A&O, no acute distress HEAD: Normocephalic, atraumatic. EYES: no scleral icterus EARS, NOSE, THROAT: oropharynx clear without exudates. Moist mucous membranes. NG Tube in place LUNGS: CTA b/l, no crackles or wheezes HEART: Regular rate and rhythm, normal S1 and S2 without murmur ABDOMEN: Soft, mildly tender to palpation, normoactive bowel sounds, dressing clean and in tact NEUROLOGICAL: Cranial nerves II-XII grossly intact. Normal speech. Laboratory Results - last 24 hr 04/11/18 04/11/18 06:30 06:30 WBC 12.5 H RBC 4.14 Hgb 13.3 Hct 38.8 MCV 93.6 MCH 32.0 MCHC 34.2 RDW 15.0 Plt Count 185 MPV 8.8 Absolute Neuts (auto) 9.8 H Neutrophils % 78.4 Lymphocytes % 12.7 D Monocytes % 8.7 Eosinophils % 0.1 D Basophils % 0.1 Nucleated RBC % 0 Sodium 138 Potassium 3.7 Chloride 100 Carbon Dioxide 32 Anion Gap 7 L BUN 14 Creatinine 1.1 Creat Clearance w eGFR > 60 Random Glucose 85 Calcium 8.1 L Active Medications Generic Name Dose Route Start Last Admin Trade Name Gaston PRN Reason Stop Dose Admin Hydromorphone HCl 10 mg 04/09/18 22:45 04/10/18 21:55 Dilaudid Riveting Machine Operator Tape Control - GRANT MANAGER 04/12/18 22:36 Not Given GRANT MANAGER MONICA Protocol Lactated Ringer's 1,000 mls @ 125 mls/hr 04/09/18 22:45 04/11/18 06:11 Lactated Ringers Solution IV 125 mls/hr ASDIR MONICA Administration Insulin Aspart 1 vial 04/10/18 16:30 04/11/18 06:22 Novolog Vial Sliding Scale - SQ Not Given ACHS MONICA Protocol Labetalol HCl 10 mg 04/09/18 22:38 04/09/18 22:30 Normodyne Injection - IVPUSH 10 mg [id number] PRN Administration HYPERTENSION Ondansetron HCl 4 mg 04/09/18 22:36 Zofran Injection IVPUSH Q6H PRN NAUSEA AND/OR VOMITING Pantoprazole Sodium 40 mg 04/10/18 10:00 04/11/18 10:43 Protonix Iv IVPUSH 40 mg DAILY MONICA Administration ASSESSMENT/PLAN: 52 year old man with a history of HTN, type 2 DM, asthma who presented to the ED with abdominal pain found to have perforating pyloric ulcer. Perforated Pyloric Channel Ulcer -Surgery consulted -s/p Edwardo Patch Repair 04/09 -Pain control with GRANT MANAGER as per anesthesia -Protonix 40 mg IV Daily -NPO until advanced by surgery NIDDM -BGMs ACHS -Insulin Sliding scale HTN -Normotensive, Labetalol PRN Asthma -Stable DVT Prophylaxis -SCDs/Early Ambulation FEN -Fluids: LR @ 125 cc/hr -Electrolytes: No electrolyte abnormalities, BMP in AM -Nutrition: NPO Disposition Med/Surg Visit type - Emergency Visit Emergency Visit: Yes ED Registration Date: 04/09/18 Care time: The patient presented to the Emergency Department on the above date and was hospitalized for further evaluation of their emergent condition. - New Patient This patient is new to me today: Yes Date on this admission: 04/11/18 - Critical Care Critical Care patient: No
--- NOTE | 2018-04-11 19:18 | PN ---
Teaching Attending Note Name of Resident: Hugo Wallace ATTENDING PHYSICIAN STATEMENT I saw and evaluated the patient. I reviewed the resident's note and discussed the case with the resident. I agree with the resident's findings and plan as documented. SUBJECTIVE: Patient has no complaints. He says he is passing flatus. OBJECTIVE: Vital Signs Period Temp Pulse Resp BP Sys/Romero Pulse Ox Last 24 Hr 97.1 F-98 F 76-84 14-20 135-158/84-88 97 HEART: S1S2, RRR LUNGS: Clear ABDOMEN: Obese, soft, non-tender, non-distended, hypoactive BS EXTREMITIES: No edema Laboratory Results - last 24 hr 04/11/18 04/11/18 04/11/18 06:30 06:30 17:34 WBC 12.5 H RBC 4.14 Hgb 13.3 Hct 38.8 MCV 93.6 MCH 32.0 MCHC 34.2 RDW 15.0 Plt Count 185 MPV 8.8 Absolute Neuts (auto) 9.8 H Neutrophils % 78.4 Lymphocytes % 12.7 D Monocytes % 8.7 Eosinophils % 0.1 D Basophils % 0.1 Nucleated RBC % 0 Sodium 138 Potassium 3.7 Chloride 100 Carbon Dioxide 32 Anion Gap 7 L BUN 14 Creatinine 1.1 Creat Clearance w eGFR > 60 POC Glucometer 102 Random Glucose 85 Calcium 8.1 L Current Medications Generic Name Dose Route Start Last Admin Trade Name Freq PRN Reason Stop Dose Admin Hydromorphone HCl 10 mg 04/09/18 22:45 04/10/18 21:55 Dilaudid Multifocal Button Grinder - MATERIAL DAMAGE ADJUSTER 04/12/18 22:36 Not Given MATERIAL DAMAGE ADJUSTER MONICA Protocol Lactated Ringer's 1,000 mls @ 125 mls/hr 04/09/18 22:45 04/11/18 18:40 Lactated Ringers Solution IV 125 mls/hr ASDIR MONICA Administration Insulin Aspart 1 vial 04/10/18 16:30 04/11/18 17:36 Novolog Vial Sliding Scale - SQ Not Given ACHS MONICA Protocol Labetalol HCl 10 mg 04/09/18 22:38 04/09/18 22:30 Normodyne Injection - IVPUSH 10 mg [id number] PRN Administration HYPERTENSION Ondansetron HCl 4 mg 04/09/18 22:36 Zofran Injection IVPUSH Q6H PRN NAUSEA AND/OR VOMITING Pantoprazole Sodium 40 mg 04/10/18 10:00 04/11/18 10:43 Protonix Iv IVPUSH 40 mg DAILY MONICA Administration ASSESSMENT AND PLAN: This is a 52 year old man with a history of HTN, type 2 DM, asthma who presented to the ED with abdominal pain. 1. Perforated pyloric channel ulcer - s/p Edwardo patch repair 04/09 - Maintain NPO - Continue Protonix IV - Maintain NG tube - Continue IV fluid - Pain control with Dilaudid MATERIAL DAMAGE ADJUSTER 2. HTN - Continue Labetalol as needed 3. Asthma - Stable 4. Type 2 DM - Continue Novolog sliding scale 5. Probable stage 3 CKD 6. Probable bilateral adrenal hyperplasia 7. Right renal stone, non-obstructing
[2018-04-11] MEDS: HYDROmorphone *PCA* 10MG/50ML DISP.SYRIN PCA SCH (22:00)
[2018-04-12] MEDS: LACTATED RINGERS SOLUTION 1,000 ML IV SCH ×3 (04:08→12:15)
[2018-04-12] MEDS: HYDROmorphone *PCA* 10MG/50ML DISP.SYRIN PCA SCH (05:37)
--- NOTE | 2018-04-12 05:43 | PN ---
Progress Note (short form) - Note Progress Note: Pain Management Note Patient seen at bedside, Patient comfortable with minimal KITCHEN HELPER use. Patient still NPO with NG tube in place. Will continue KITCHEN HELPER uuntil the patient takes PO.
[2018-04-12] MEDS: INSULIN SLIDING SCALE (NOVOLOG) 1 VIAL SQ SCH ×4 (06:24→21:31)
--- NOTE | 2018-04-12 07:59 | PN ---
Teaching Attending Note Name of Resident: Hugo Wallace ATTENDING PHYSICIAN STATEMENT I saw and evaluated the patient. I reviewed the resident's note and discussed the case with the resident. I agree with the resident's findings and plan as documented. SUBJECTIVE: c/o mild abd pain and cough NG tube removed OBJECTIVE: Vital Signs Temperature 97.6 F 04/12/18 02:00 Pulse Rate 89 04/12/18 02:00 Respiratory Rate 18 04/12/18 02:00 Blood Pressure 155/104 H 04/12/18 02:00 O2 Sat by Pulse Oximetry (%) 97 04/11/18 21:50 Middle aged man comfortable not in distress HEENT: Mm moist, no anemia, PERRLA EOMI NECK: No JVd No bruit CHEST: CTA B/L CVS; S1S2 R ABD: s/P surgery soft , mild tenderness EXT: No edema feet BAKER OPERATOR AUTOMATIC: AOX3 non focal LABS: CBC, BMP 04/12/18 06:30 04/12/18 06:30 Active Medications Hydromorphone HCl (Dilaudid Supervisor Plastics -) 10 mg SPRAY DRIER SPRAY DRIER MONICA; Protocol Stop: 04/12/18 22:36 Last Admin: 04/12/18 05:37 Dose: 10 mg Lactated Ringer's (Lactated Ringers Solution) 1,000 mls @ 50 mls/hr IV ASDIR MONICA Insulin Aspart (Novolog Vial Sliding Scale -) 1 vial SQ ACHS MONICA; Protocol Last Admin: 04/12/18 11:38 Dose: Not Given Labetalol HCl (Normodyne Injection -) 10 mg IVPUSH [id number] PRN PRN Reason: HYPERTENSION Last Admin: 04/09/18 22:30 Dose: 10 mg Ondansetron HCl (Zofran Injection) 4 mg IVPUSH Q6H PRN PRN Reason: NAUSEA AND/OR VOMITING Pantoprazole Sodium (Protonix Iv) 40 mg IVPUSH DAILY MONICA Last Admin: 04/12/18 10:20 Dose: 40 mg ASSESSMENT AND PLAN: 52 yrs old HTN, asthma, admitted with perforated ulcer s/ p Edwardo patch NG tube removed; Plan; Clear liquid switched to Po BP meds Albuterol MDI Problem List - Problems (1) Perforated abdominal viscus Assessment/Plan: S/p Gragan m patch on 04/09 Post Op management as per Surgery team, pain control Code(s): [id number] - (2) HTN (hypertension) Assessment/Plan: add amlodipine Code(s): I10 - ESSENTIAL (PRIMARY) HYPERTENSION (3) JOSE ANTONIO (acute kidney injury) Assessment/Plan: Improving Code(s): N17.9 - ACUTE KIDNEY FAILURE, UNSPECIFIED (4) Dehydration Assessment/Plan: Corrected Code(s): E86.0 - DEHYDRATION (5) Hypokalemia Assessment/Plan: repleted f?U Mag and BMP Code(s): E87.6 - HYPOKALEMIA
--- NOTE | 2018-04-12 08:03 | PN ---
Progress Note (short form) - Note Progress Note: Anethesia/pain Pt seen and examined S:Alert and awake comfortable O: Vital Signs Temperature 97.6 F 04/12/18 02:00 Pulse Rate 89 04/12/18 02:00 Respiratory Rate 18 04/12/18 02:00 Blood Pressure 155/104 H 04/12/18 02:00 O2 Sat by Pulse Oximetry (%) 97 04/11/18 21:50 a/P: Current Active Problems Perforated abdominal viscus (Acute) s/p laparotomy Doing well post op Continue DRY STARCH OPERATOR Garett Kaiser MD
[2018-04-12 08:05] LABS: HEMATOCRIT 38.5 % (35.4-49); HEMOGLOBIN 13.5 GM/dL (11.7-16.9); MCH 32.2 pg (25.7-33.7); MEAN CELL VOLUME 92.1 fl (80-96); MEAN PLT VOLUME 8.6 fl (7.5-11.1); PLATELET COUNT 188 K/MM3 (134-434); RBC 4.19 M/mm3 (4.00-5.60); RDW 14.8 % (11.9-15.9)
[2018-04-12 08:24] LABS: ANION GAP 11 MMOL/L (8-16); BLOOD UREA NITROGEN 13 mg/dL (7-18); CALCIUM 8.5 mg/dL (8.5-10.1); CHLORIDE 98 mmol/L (98-107); CO2 30 mmol/L (21-32); CREATININE 0.9 mg/dL (0.55-1.3); GLUCOSE,RANDOM 86 mg/dL (74-106); MAGNESIUM 2.2 mg/dL (1.8-2.4); POTASSIUM 3.3 mmol/L (3.5-5.1); SODIUM 138 mmol/L (136-145)
[2018-04-12] MEDS: PANTOPRAZOLE SODIUM 40 MG VIAL IVPUSH SCH (10:20)
--- NOTE | 2018-04-12 11:43 | PN ---
Progress Note (short form) - Note Progress Note: 52yo M s/p tyrese patch for perforated viscus, seen and examined at bedside. Pt states that he wants to go home and wants his NG tube out. Pt denies fever, chills, n/v. Last Vital Signs Temp Pulse Resp BP Pulse Ox 97.6 F 89 18 155/104 H 97 04/12/18 02:00 04/12/18 02:00 04/12/18 02:00 04/12/18 02:00 04/11/18 21:50 CBC, BMP 04/12/18 06:30 04/12/18 06:30 PE: Gen: A&O x3 Resp: breathing comfortably Abd: soft, nondistended, mild tenderness, incision clean with no erythema or discharge. Problem List - Problems (1) Perforated abdominal viscus Assessment/Plan: Plan -will remove NG tube at this time, and try pt on clear liquids -cont PPI -OOB/ambulate Code(s): [id number] -
[2018-04-12] MEDS ORDERED: ALBUTEROL SO4 8 GM HFA INHALER IH PRN (16:51)
--- NOTE | 2018-04-12 16:51 | PN ---
Physical Exam: SUBJECTIVE: Patient seen and examined this AM. He states his pain is much improved and that he is wondering how long he will need to be in the hospital. OBJECTIVE: Vital Signs Period Temp Pulse Resp BP Sys/Romero Pulse Ox Last 24 Hr 97.6 F-99.0 F 88-92 14-20 125-156/93-104 97-97 GENERAL: A&O, no acute distress HEAD: Normocephalic, atraumatic. EYES: no scleral icterus EARS, NOSE, THROAT: oropharynx clear without exudates. Moist mucous membranes. NG Tube in place LUNGS: CTA b/l, no crackles or wheezes HEART: Regular rate and rhythm, normal S1 and S2 without murmur ABDOMEN: Soft, mildly tender to palpation, normoactive bowel sounds, dressing clean and in tact NEUROLOGICAL: Cranial nerves II-XII grossly intact. Normal speech. Laboratory Results - last 24 hr 04/11/18 04/12/18 04/12/18 17:34 06:30 06:30 WBC 13.0 H RBC 4.19 Hgb 13.5 Hct 38.5 MCV 92.1 MCH 32.2 MCHC 35.0 RDW 14.8 Plt Count 188 MPV 8.6 Sodium 138 Potassium 3.3 L Chloride 98 Carbon Dioxide 30 Anion Gap 11 BUN 13 Creatinine 0.9 Creat Clearance w eGFR > 60 POC Glucometer 102 Random Glucose 86 Calcium 8.5 Phosphorus 3.0 Magnesium 2.2 Active Medications Generic Name Dose Route Start Last Admin Trade Name Freq PRN Reason Stop Dose Admin Hydromorphone HCl 10 mg 04/09/18 22:45 04/12/18 05:37 Dilaudid Furnace Caretaker - YARN TEXTURING MACHINE OPERATOR 04/12/18 22:36 10 mg YARN TEXTURING MACHINE OPERATOR MONICA Administration Protocol Lactated Ringer's 1,000 mls @ 50 mls/hr 04/12/18 12:11 04/12/18 12:15 Lactated Ringers Solution IV 50 mls/hr ASDIR MONICA Administration Insulin Aspart 1 vial 04/10/18 16:30 04/12/18 16:45 Novolog Vial Sliding Scale - SQ Not Given ACHS MONICA Protocol Labetalol HCl 10 mg 04/09/18 22:38 04/09/18 22:30 Normodyne Injection - IVPUSH 10 mg [id number] PRN Administration HYPERTENSION Ondansetron HCl 4 mg 04/09/18 22:36 Zofran Injection IVPUSH Q6H PRN NAUSEA AND/OR VOMITING Pantoprazole Sodium 40 mg 04/10/18 10:00 04/12/18 10:20 Protonix Iv IVPUSH 40 mg DAILY MONICA Administration Potassium Chloride 40 meq 04/12/18 22:00 K-Dur - PO 04/13/18 10:01 BID MONICA ASSESSMENT/PLAN: 52 year old man with a history of HTN, type 2 DM, asthma who presented to the ED with abdominal pain found to have perforating pyloric ulcer. Perforated Pyloric Channel Ulcer -Surgery consulted -s/p Edwardo Patch Repair 04/09 -Pain control with YARN TEXTURING MACHINE OPERATOR as per anesthesia -Protonix 40 mg IV Daily -Clear liquids -NGT dc today NIDDM -BGMs ACHS -Insulin Sliding scale HTN -Restart scheduled home meds -pt states he is noncompliant at home Asthma -Stable DVT Prophylaxis -SCDs/Early Ambulation FEN -Fluids: D/c fluids -Electrolytes: No electrolyte abnormalities, BMP in AM -Nutrition: NPO Disposition Med/Surg Visit type - Emergency Visit Emergency Visit: Yes ED Registration Date: 04/09/18 Care time: The patient presented to the Emergency Department on the above date and was hospitalized for further evaluation of their emergent condition. - New Patient This patient is new to me today: No - Critical Care Critical Care patient: No
[2018-04-12] MEDS: amLODIPine BESYLATE 5 MG TABLET (FP) PO SCH (17:09)
[2018-04-12] MEDS: LISINOPRIL 20 MG TABLET (FP) PO SCH (17:09)
[2018-04-12] MEDS: POTASSIUM CHLORIDE TABS 20 MEQ TABLET.ER (FP) PO SCH (21:29)
[2018-04-13] MEDS: INSULIN SLIDING SCALE (NOVOLOG) 1 VIAL SQ SCH ×4 (06:09→21:41)
[2018-04-13] MEDS: LACTATED RINGERS SOLUTION 1,000 ML IV SCH (06:12)
[2018-04-13 08:00] LABS: HEMATOCRIT 37.7 % (35.4-49); MCH 31.9 pg (25.7-33.7); MCHC 34.4 g/dl (32.0-35.9); MEAN CELL VOLUME 92.7 fl (80-96); MEAN PLT VOLUME 8.5 fl (7.5-11.1); PLATELET COUNT 203 K/MM3 (134-434); RBC 4.07 M/mm3 (4.00-5.60); RDW 14.5 % (11.9-15.9); WHITE BLOOD COUNT 8.6 K/mm3 (4.0-10.0)
--- NOTE | 2018-04-13 08:15 | PN ---
Physical Exam: SUBJECTIVE: Patient seen and examined this AM. He states his pain is well controlled as long as he keeps pressing the TENT FINISHER button. Discussed with patient possibility of switching to PO pain meds but will defer to anesthesia to d/c TENT FINISHER. Pt agreeable to oral pain control. OBJECTIVE: Vital Signs Period Temp Pulse Resp BP Sys/Romero Pulse Ox Last 24 Hr 98.6 F-99.0 F 76-92 18-20 125-156/93-100 93-97 GENERAL: A&O, no acute distress HEAD: Normocephalic, atraumatic. EYES: no scleral icterus EARS, NOSE, THROAT: oropharynx clear without exudates. Moist mucous membranes. NG Tube in place LUNGS: CTA b/l, no crackles or wheezes HEART: Regular rate and rhythm, normal S1 and S2 without murmur ABDOMEN: Soft, mildly tender to palpation, normoactive bowel sounds, cal in tact without surrounding erythema or drainage NEUROLOGICAL: Cranial nerves II-XII grossly intact. Normal speech. Laboratory Results - last 24 hr 04/12/18 04/12/18 06:30 06:30 WBC 13.0 H RBC 4.19 Hgb 13.5 Hct 38.5 MCV 92.1 MCH 32.2 MCHC 35.0 RDW 14.8 Plt Count 188 MPV 8.6 Sodium 138 Potassium 3.3 L Chloride 98 Carbon Dioxide 30 Anion Gap 11 BUN 13 Creatinine 0.9 Creat Clearance w eGFR > 60 Random Glucose 86 Calcium 8.5 Phosphorus 3.0 Magnesium 2.2 Active Medications Generic Name Dose Route Start Last Admin Trade Name Freq PRN Reason Stop Dose Admin Albuterol Sulfate 1 puff 04/12/18 16:51 Ventolin Hfa Inhaler - IH Q4H PRN ASTHMA Amlodipine Besylate 5 mg 04/12/18 17:00 04/12/18 17:09 Norvasc - PO 5 mg DAILY MONICA Administration Lactated Ringer's 1,000 mls @ 50 mls/hr 04/12/18 12:11 04/13/18 06:12 Lactated Ringers Solution IV 50 mls/hr ASDIR MONICA Administration Insulin Aspart 1 vial 04/10/18 16:30 04/13/18 06:09 Novolog Vial Sliding Scale - SQ Not Given ACHS MONICA Protocol Lisinopril 20 mg 04/12/18 17:00 04/12/18 17:09 Prinivil PO 20 mg DAILY MONICA Administration Ondansetron HCl 4 mg 04/09/18 22:36 Zofran Injection IVPUSH Q6H PRN NAUSEA AND/OR VOMITING Pantoprazole Sodium 40 mg 04/10/18 10:00 04/12/18 10:20 Protonix Iv IVPUSH 40 mg DAILY MONICA Administration Potassium Chloride 40 meq 04/12/18 22:00 04/12/18 21:29 K-Dur - PO 04/13/18 10:01 40 meq BID MONICA Administration ASSESSMENT/PLAN: 52 year old man with a history of HTN, type 2 DM, asthma who presented to the ED with abdominal pain found to have perforating pyloric ulcer. Perforated Pyloric Channel Ulcer -Surgery consulted -s/p Edwardo Patch Repair 04/09 -D/C TENT FINISHER, Oxycodone 5 mg PO Q6 -Protonix 40 mg IV Daily -Soft, advance as tolerated -GI Consulted for further evaluation and PPI recommendations/follow up NIDDM -BGMs ACHS -Insulin Sliding scale HTN -Restart scheduled home meds -pt states he is noncompliant at home Asthma -Stable DVT Prophylaxis -SCDs/Early Ambulation FEN -Fluids: D/c fluids -Electrolytes: No electrolyte abnormalities, BMP in AM -Nutrition: soft, advance as per surgery Disposition Med/Surg Visit type - Emergency Visit Emergency Visit: Yes ED Registration Date: 04/09/18 Care time: The patient presented to the Emergency Department on the above date and was hospitalized for further evaluation of their emergent condition. - New Patient This patient is new to me today: No - Critical Care Critical Care patient: No
[2018-04-13 08:26] LABS: ANION GAP 8 MMOL/L (8-16); BLOOD UREA NITROGEN 12 mg/dL (7-18); CALCIUM 8.6 mg/dL (8.5-10.1); CHLORIDE 102 mmol/L (98-107); CO2 31 mmol/L (21-32); CREATININE 0.8 mg/dL (0.55-1.3); GLUCOSE,RANDOM 90 mg/dL (74-106); MAGNESIUM 2.4 mg/dL (1.8-2.4); PHOSPHOROUS 2.8 mg/dL (2.5-4.9); POTASSIUM 3.5 mmol/L (3.5-5.1); SODIUM 141 mmol/L (136-145)
[2018-04-13] MEDS ORDERED: NAPH,MB-DB/K PH,MBDB POWDER PACKET PO ONE (08:41)
[2018-04-13] MEDS: PANTOPRAZOLE SODIUM 40 MG VIAL IVPUSH SCH (10:06)
[2018-04-13] MEDS: POTASSIUM CHLORIDE TABS 20 MEQ TABLET.ER (FP) PO SCH (10:07)
[2018-04-13] MEDS: LISINOPRIL 20 MG TABLET (FP) PO SCH (10:07)
[2018-04-13] MEDS: amLODIPine BESYLATE 5 MG TABLET (FP) PO SCH (10:07)
--- NOTE | 2018-04-13 10:20 | PN ---
Progress Note (short form) - Note Progress Note: POD 5, s/p laparotomy, Edwardo patch closure of perforated pyloric channel ulcer Pt seen and examined. Reports pain is controlled with PO pain meds. Was advanced to clears yesterday, reports it went "okay". Denies any n/v. Has been oob in his room without issue. Passing flatus, no BM. Denies cp/sob, n/v/d, calf pain/edema. Vital Signs Temp 98.6 F 04/13/18 07:00 Pulse 76 04/13/18 07:00 Resp 20 04/13/18 07:00 BP 136/94 04/13/18 07:00 Pulse Ox 93 L 04/12/18 21:00 Intake & Output 04/12/18 04/12/18 04/13/18 11:59 23:59 11:59 Intake Total 825 600 Output Total 1200 900 Balance -1200 -75 600 Intake: IV 625 600 Lactated Ringers Solution 625 600 1,000 ml @ 50 mls/hr IV ASDIR MONICA Rx#:[id number] Oral 200 Output: Gastric Drainage 600 Urine 600 900 Void 600 900 Other: Voiding Method Urinal Toilet # Unmeasured Voids Void 1 Bowel Movement No No Body Mass Index (BMI) 32.5 CBC, BMP 04/13/18 06:37 04/13/18 06:37 Gen: awake, alert, nad Resp: cta b/l CV: rrr, s1s2 Abdo: soft, nd, minimal ttp at incision site. [place] at midline incision, c/d/i , no erythema or drainage. A/P: 52 y/o M w/ PMHx DM, HTN, asthma, admitted 04/09 with abdominal pain, found to have pneumoperitoneum, now POD 5, s/p laparotomy, Edwardo patch closure of perforated pyloric channel ulcer. Doing well, pain controlled, tolerating clears, requesting more food. Afebrile, vss. Leukocytosis resolved. Peritoneal cavity swab negative -Diet advanced to soft -GI consult-Dr Mann (contacted, will see pt) -Pain control with Acetaminophen 650mg q4hrs prn pain, Oxy 5mg q6hrs prn pain -DVT prophylaxis with b/l scds, may give Heparin sq if needed per primary teams discretion -Monitor VS -Incentive spirometry encouraged -OOB ad tylor -Remainder of care per primary team -Home meds ordered -ISS, FS -GI prophylaxis, pantoprazole 40mg qd d/w attending Dr Santana
[2018-04-13] MEDS ORDERED: ACETAMINOPHEN 325 MG TABLET (FP) PO PRN (10:31)
--- NOTE | 2018-04-13 13:19 | PN ---
Progress Note (short form) - Note Progress Note: Anesthesiology/Pain: POD #4 - s/p exploratory laparotomy/repair of perforated ulcer. VSS. SPECIAL EDUCATION ASSOCIATE discontinued. Pt. up and about comfortably without complaint. Oxycodone and Tylenol ordered. Will sign off.
[2018-04-13] MEDS: oxyCODONE HCL 5 MG TABLET PO PRN ×2 (14:45→20:57)
[2018-04-13 17:09] LABS: H.PYLORI AB IGM <9.0 units (0.0-8.9)
--- NOTE | 2018-04-13 18:17 | PN ---
Teaching Attending Note Name of Resident: Hugo Wallace ATTENDING PHYSICIAN STATEMENT I saw and evaluated the patient. I reviewed the resident's note and discussed the case with the resident. I agree with the resident's findings and plan as documented. SUBJECTIVE: Feels better - no abdominal pain. Hungry - wants to eat - has bag of potato chips open. OBJECTIVE: Afebrile/Hemodynamically Stable. Last Vital Signs Temp Pulse Resp BP Pulse Ox 99 F 72 20 132/76 95 04/13/18 17:22 04/13/18 17:22 04/13/18 17:22 04/13/18 17:22 04/13/18 09:00 HEENT- Atraumatic, Normocephalic Heart - S1, S2, RRR Lungs - clear to auscultation. Abdomen - midline laparotomy scar with cal Extremities - no edema, no calf tenderness Laboratory Results - last 24 hr 04/09/18 04/13/18 04/13/18 05:30 06:37 06:37 WBC 8.6 RBC 4.07 Hgb 13.0 Hct 37.7 MCV 92.7 MCH 31.9 MCHC 34.4 RDW 14.5 Plt Count 203 MPV 8.5 Sodium 141 Potassium 3.5 Chloride 102 Carbon Dioxide 31 Anion Gap 8 BUN 12 Creatinine 0.8 Creat Clearance w eGFR > 60 Random Glucose 90 Calcium 8.6 Phosphorus 2.8 Magnesium 2.4 H. pylori IgG Antibody 8.28 H H. pylori IgA Antibody <9.0 H. pylori IgM Antibody <9.0 Current Medications Generic Name Dose Route Start Last Admin Trade Name Freq PRN Reason Stop Dose Admin Acetaminophen 650 mg 04/13/18 10:31 Tylenol - PO Q4H PRN PAIN OR FEVER Albuterol Sulfate 1 puff 04/12/18 16:51 Ventolin Hfa Inhaler - IH Q4H PRN ASTHMA Amlodipine Besylate 5 mg 04/12/18 17:00 04/13/18 10:07 Norvasc - PO 5 mg DAILY [facility] Administration Insulin Aspart 1 vial 04/10/18 16:30 04/13/18 16:26 Novolog Vial Sliding Scale - SQ Not Given ACHS [facility] Protocol Lisinopril 20 mg 04/12/18 17:00 04/13/18 10:07 Prinivil PO 20 mg DAILY [facility] Administration Ondansetron HCl 4 mg 04/09/18 22:36 Zofran Injection IVPUSH Q6H PRN NAUSEA AND/OR VOMITING Oxycodone HCl 5 mg 04/13/18 10:32 04/13/18 14:45 Roxicodone - PO 5 mg Q6H PRN Administration PAIN LEVEL 6-10 Pantoprazole Sodium 40 mg 04/10/18 10:00 04/13/18 10:06 Protonix Iv IVPUSH 40 mg DAILY [facility] Administration ASSESSMENT/PLAN: 52 year old male with a history of HTN, DM 2, asthma who presented to the ED with abdominal pain. 1. Perforated pyloric channel ulcer POD 4 s/p Edwardo patch repair 04/09 Dilaudid DISK RECORDIST turned off Tolerating clear diet - advance as per Surgery GI consulted for PUD Continue Protonix 2. HTN - Continue Lisinopril and Norvasc 3. Asthma - Stable. Albuterol prn 4. DM 2 - Continue Novolog sliding scale 5. CKD 3 - stable 6. Probable bilateral adrenal hyperplasia - for out-patient follow up. 7. Right renal stone, non-obstructing - asymptomatic. DVT Px - as per Surgery GI Px - Protonix
[2018-04-13] MEDS ORDERED: INSULIN (NOVOLOG) ASPART 100 UNITS/ML 10ML VIAL ONE (20:33)
[2018-04-14] MEDS: oxyCODONE HCL 5 MG TABLET PO PRN ×2 (05:26→11:38)
--- NOTE | 2018-04-14 06:20 | CONS ---
DATE OF CONSULTATION: DATE OF DICTATION: 04/13/2018 HISTORY OF PRESENT ILLNESS: The patient is a 52-year-old man with past medical history of hypertension, diabetes, asthma, who presents in hospital on Thursday with complaints of abdominal pain which occurred suddenly while he was walking during the day. He denied any nausea, vomiting, previous episodes in the past. He states he has never been hospitalized prior to this. On imaging he was found to have free air under the diaphragm. He was taken to the OR on the , at which time he had the laparotomy, Edwardo patch closure of a perforated pyloric channel ulcer. Currently he states he is feeling better. Denies any complaints. PAST MEDICAL AND SURGICAL HISTORY: As listed in the HPI. ALLERGIES: Denies. SOCIAL HISTORY: Does not smoke, drink or use drugs. FAMILY HISTORY: Noncontributory. HOME MEDICATION: Denies. REVIEW OF SYSTEMS: Negative except for pertinent positives in the HPI. PHYSICAL EXAMINATION: VITAL SIGNS: Within normal limits. Temperature 99, pulse 72, blood pressure 130/72, respiratory rate 12. GENERAL: In no acute distress. HEENT: Anicteric sclerae. CARDIOVASCULAR: S1, S2, regular rate and rhythm. LUNGS: Bilaterally clear to auscultation. ABDOMEN: Soft, nontender. EXTREMITIES: No edema. LABORATORY: White blood cell count 8.6, hemoglobin and hematocrit 13/37, platelet count 203, INR 1.1. Sodium 141, potassium 3.5, BUN and creatinine 12/0.8, glucose 90. Liver tests are within normal limits. Serology for H pylori is positive in general. IMAGING STUDIES: Done on the include abdomen and pelvis CTA, pneumoperitoneum small amount of free intraperitoneal fluid in the upper abdomen, no evidence of aortic dissection or aneurysm, 3 mm nonobstructing right renal calculus, hypoplasia of the adrenal gland, 3 month followup is recommended. IMPRESSION: Perforated gastric ulcer status post repair, most likely secondary to peptic ulcer disease, Helicobacter pylori gastritis. RECOMMENDATION: Stool H pylori antigen should be obtained and he should be treated for H pylori infection if positive with Prevpac. He will also need a diagnostic upper endoscopy in a couple of months unless the acute process has resolved. Diet as per surgery. Will follow. DO CORKY JAY/[id number]
[2018-04-14] MEDS: INSULIN SLIDING SCALE (NOVOLOG) 1 VIAL SQ SCH ×3 (07:38→17:44)
[2018-04-14 08:29] LABS: HEMATOCRIT 28.6 % (35.4-49); HEMOGLOBIN 9.3 GM/dL (11.7-16.9); MCH 24.8 pg (25.7-33.7); MCHC 32.4 g/dl (32.0-35.9); MEAN CELL VOLUME 76.3 fl (80-96); MEAN PLT VOLUME 7.7 fl (7.5-11.1); PLATELET COUNT 491 K/MM3 (134-434); RBC 3.75 M/mm3 (4.00-5.60); RDW 21.2 % (11.9-15.9)
--- NOTE | 2018-04-14 09:10 | PN ---
Progress Note (short form) - Note Progress Note: POD #5 Pt tolerating a diet, having bowel movements and passing flatus. Vital Signs Period Temp Pulse Resp BP Sys/Romero Pulse Ox Last 24 Hr 98.1 F-99 F 72-80 18-20 132-153/71-100 GEN: A&0x3, NAD ABD: soft, non-distended, inc tendneress. Inc c/d/i with cal CBC, BMP 04/14/18 08:00 Microbiology 04/09/18 Unknown Peritoneal Cavity Swab Gram Stain - Final 04/09/18 Unknown Peritoneal Cavity Swab Wound Culture - Final NO GROWTH AFTER 48 HOURS INCUBATION A/P: 52 yo male s/p ex lap for perforated pyloric ulcer with Edwardo patch repair Continue diet as tolerated GI consult, he remains on IV protonix but will need recommendations for GI ppx upon discharge DVT ppx with heparin SQ D/w Dr. Santana/discharge instructions and follow regarding surgery completed
[2018-04-14 09:15] LABS: ANION GAP 8 MMOL/L (8-16); BLOOD UREA NITROGEN 7 mg/dL (7-18); CALCIUM 8.9 mg/dL (8.5-10.1); CHLORIDE 105 mmol/L (98-107); CO2 25 mmol/L (21-32); CREATININE 0.5 mg/dL (0.55-1.3); GLUCOSE,RANDOM 87 mg/dL (74-106); MAGNESIUM 1.7 mg/dL (1.8-2.4); POTASSIUM 3.7 mmol/L (3.5-5.1); SODIUM 139 mmol/L (136-145)
[2018-04-14] MEDS ORDERED: HEPARIN NA (PORCINE) 5,000 UNITS/ML 1ML VIAL SQ SCH (10:00)
[2018-04-14] MEDS: amLODIPine BESYLATE 5 MG TABLET (FP) PO SCH (11:38)
[2018-04-14] MEDS: PANTOPRAZOLE SODIUM 40 MG VIAL IVPUSH SCH (11:41)
[2018-04-14] MEDS: LISINOPRIL 20 MG TABLET (FP) PO SCH (11:41)
[2018-04-14] MEDS ORDERED: PANTOPRAZOLE 40 MG TABLET (FP) PO SCH (13:30)
[2018-04-14] MEDS ORDERED: MAGNESIUM OXIDE 400 MG TABLET (FP) PO ONE (14:38)
--- NOTE | 2018-04-14 15:50 | PN ---
Physical Exam: SUBJECTIVE: Patient seen and examined this AM. He was very rude and refused to be examined. He stated he was in pain, though multiple chip bags noted by pt's bed. Pt cursing and yelling at the team to leave him alone OBJECTIVE: Vital Signs Period Temp Pulse Resp BP Sys/Romero Pulse Ox Last 24 Hr 97.6 F-99 F 72-90 16-20 129-153/7-100 Pt refused exam. Laboratory Results - last 24 hr 04/09/18 04/14/18 04/14/18 05:30 05:23 08:00 WBC 10.0 RBC 3.75 L Hgb 9.3 L Hct 28.6 L D MCV 76.3 L MCH 24.8 L D MCHC 32.4 RDW 21.2 H Plt Count 491 H D MPV 7.7 Sodium Potassium Chloride Carbon Dioxide Anion Gap BUN Creatinine Creat Clearance w eGFR POC Glucometer 106 Random Glucose Calcium Phosphorus Magnesium H. pylori IgG Antibody 8.28 H H. pylori IgA Antibody <9.0 H. pylori IgM Antibody <9.0 04/14/18 08:00 WBC RBC Hgb Hct MCV MCH MCHC RDW Plt Count MPV Sodium 139 Potassium 3.7 Chloride 105 Carbon Dioxide 25 Anion Gap 8 BUN 7 Creatinine 0.5 L Creat Clearance w eGFR > 60 POC Glucometer Random Glucose 87 Calcium 8.9 Phosphorus 3.0 Magnesium 1.7 L H. pylori IgG Antibody H. pylori IgA Antibody H. pylori IgM Antibody Active Medications Generic Name Dose Route Start Last Admin Trade Name Freq PRN Reason Stop Dose Admin Acetaminophen 650 mg 04/13/18 10:31 04/14/18 11:40 Tylenol - PO 650 mg Q4H PRN Administration PAIN OR FEVER Albuterol Sulfate 1 puff 04/12/18 16:51 Ventolin Hfa Inhaler - IH Q4H PRN ASTHMA Amlodipine Besylate 5 mg 04/12/18 17:00 04/14/18 11:38 Norvasc - PO 5 mg DAILY [facility] Administration Heparin Sodium (Porcine) 5,000 unit 04/14/18 10:00 04/14/18 11:41 Heparin - SQ Not Given BID [facility] Insulin Aspart 1 vial 04/10/18 16:30 04/14/18 11:40 Novolog Vial Sliding Scale - SQ Not Given ACHS [facility] Protocol Lisinopril 20 mg 04/12/18 17:00 04/14/18 11:41 Prinivil PO 20 mg DAILY [facility] Administration Ondansetron HCl 4 mg 04/09/18 22:36 Zofran Injection IVPUSH Q6H PRN NAUSEA AND/OR VOMITING Oxycodone HCl 5 mg 04/13/18 10:32 04/14/18 11:38 Roxicodone - PO 5 mg Q6H PRN Administration PAIN LEVEL 6-10 Pantoprazole Sodium 40 mg 04/10/18 10:00 04/14/18 11:41 Protonix Iv IVPUSH 40 mg DAILY [facility] Administration Pantoprazole Sodium 40 mg 04/14/18 13:30 04/14/18 15:40 Protonix - PO 40 mg DAILY [facility] Administration ASSESSMENT/PLAN: 52 year old man with a history of HTN, type 2 DM, asthma who presented to the ED with abdominal pain found to have perforating pyloric ulcer. Perforated Pyloric Channel Ulcer -Surgery recs appreciated, okay for d/c from surgical standpoint -s/p Edwardo Patch Repair 04/09 -Oxycodone 5 mg PO Q6 -Protonix 40 mg IV Daily converted to PO -Soft, advance as tolerated -GI Consulted for further evaluation and PPI recommendations/follow up -Awaiting stool sample from patient for H. pylori Ag -IgG positive, IgA/IgM negative for H. pylori in serum NIDDM -BGMs ACHS -Insulin Sliding scale HTN -Restart scheduled home meds -pt states he is noncompliant at home Asthma -Stable DVT Prophylaxis -Heparin 5000 units SQ BID FEN -Fluids: none -Electrolytes: No electrolyte abnormalities, BMP in AM -Nutrition: soft, advance as per surgery Disposition Med/Surg Visit type - Emergency Visit Emergency Visit: Yes ED Registration Date: 04/09/18 Care time: The patient presented to the Emergency Department on the above date and was hospitalized for further evaluation of their emergent condition. - New Patient This patient is new to me today: No - Critical Care Critical Care patient: No
[2018-04-14 17:14] VITALS: BP 140/95; PULSE 78; TEMP 98.4
--- NOTE | 2018-04-14 17:23 | PN ---
Teaching Attending Note Name of Resident: Hugo Wallace ATTENDING PHYSICIAN STATEMENT I saw and evaluated the patient. I reviewed the resident's note and discussed the case with the resident. I agree with the resident's findings and plan as documented. SUBJECTIVE: Verbally abusive and uncooperative for no clear reason. OBJECTIVE: Afebrile/Hemodynamically Stable. Last Vital Signs Temp Pulse Resp BP Pulse Ox 98.4 F 78 20 140/95 95 04/14/18 17:14 04/14/18 17:14 04/14/18 17:14 04/14/18 17:14 04/13/18 09:00 Patient declined Physical Exam Laboratory Results - last 24 hr 04/14/18 04/14/18 04/14/18 05:23 08:00 08:00 WBC 10.0 RBC 3.75 L Hgb 9.3 L Hct 28.6 L D MCV 76.3 L MCH 24.8 L D MCHC 32.4 RDW 21.2 H Plt Count 491 H D MPV 7.7 Sodium 139 Potassium 3.7 Chloride 105 Carbon Dioxide 25 Anion Gap 8 BUN 7 Creatinine 0.5 L Creat Clearance w eGFR > 60 POC Glucometer 106 Random Glucose 87 Calcium 8.9 Phosphorus 3.0 Magnesium 1.7 L Current Medications Generic Name Dose Route Start Last Admin Trade Name Freq PRN Reason Stop Dose Admin Acetaminophen 650 mg 04/13/18 10:31 04/14/18 11:40 Tylenol - PO 650 mg Q4H PRN Administration PAIN OR FEVER Albuterol Sulfate 1 puff 04/12/18 16:51 Ventolin Hfa Inhaler - IH Q4H PRN ASTHMA Amlodipine Besylate 5 mg 04/12/18 17:00 04/14/18 11:38 Norvasc - PO 5 mg DAILY [facility] Administration Heparin Sodium (Porcine) 5,000 unit 04/14/18 10:00 04/14/18 11:41 Heparin - SQ Not Given BID [facility] Insulin Aspart 1 vial 04/10/18 16:30 04/14/18 11:40 Novolog Vial Sliding Scale - SQ Not Given ACHS [facility] Protocol Lisinopril 20 mg 04/12/18 17:00 04/14/18 11:41 Prinivil PO 20 mg DAILY [facility] Administration Ondansetron HCl 4 mg 04/09/18 22:36 Zofran Injection IVPUSH Q6H PRN NAUSEA AND/OR VOMITING Oxycodone HCl 5 mg 04/13/18 10:32 04/14/18 11:38 Roxicodone - PO 5 mg Q6H PRN Administration PAIN LEVEL 6-10 Pantoprazole Sodium 40 mg 04/10/18 10:00 04/14/18 11:41 Protonix Iv IVPUSH 40 mg DAILY [facility] Administration Pantoprazole Sodium 40 mg 04/14/18 13:30 04/14/18 15:40 Protonix - PO 40 mg DAILY [facility] Administration ASSESSMENT/PLAN: 52 year old male with a history of HTN, DM 2, asthma presented to the ED with abdominal pain found to have perforated gastric ulcer. 1. Perforated pyloric channel ulcer POD 5 s/p Edwardo patch repair 04/09 Dilaudid IP ATTORNEY turned off Tolerating clear diet - advance as per Surgery GI consulted for PUD - recommend stool Hpylori and initiation of triple therapy if positive. Patient not cooperative with providing stool sample. Continue Protonix For out-patient GI and Surgery follow up. 2. HTN - Continue Lisinopril and Norvasc 3. Asthma - Stable. Albuterol prn 4. DM 2 - Continue Novolog sliding scale 5. CKD 3 - stable 6. Probable bilateral adrenal hyperplasia - for out-patient follow up. 7. Right renal stone, non-obstructing - asymptomatic. DVT Px - started on Heparin SQ GI Px - Protonix
[2018-04-14] MEDS ORDERED: MAGNESIUM SULF 50% (8.12 MEQ/2 ML-1 GM VIAL) IVPB ONE (17:28)
[2018-04-14 19:28] LABS: BASO % 2.2 % (0-2.0); EOS % 2.1 % (0-4.5); HEMATOCRIT 42.1 % (35.4-49); HEMOGLOBIN 14.1 GM/dL (11.7-16.9); LYMPH % 21.3 % (8-40); MCH 31.5 pg (25.7-33.7); MCHC 33.4 g/dl (32.0-35.9); MEAN CELL VOLUME 94.2 fl (80-96); MEAN PLT VOLUME 8.7 fl (7.5-11.1); MONO % 7.1 % (3.8-10.2); NEUT % 67.3 % (42.8-82.8); PLATELET COUNT 234 K/MM3 (134-434); RBC 4.47 M/mm3 (4.00-5.60); RDW 14.7 % (11.9-15.9); WHITE BLOOD COUNT 9.7 K/mm3 (4.0-10.0)
== END 2018-04-14 19:58 | disposition home or self-care (01) | DRG 223 ==
LOC: JER 12:32 → JERBED 16:10 → J8W 04-10 00:20
PROVIDERS: ADMIT Internal Medicine
PROC: 0WJP0ZZ Inspection of Gastrointestinal Tract, Open Approach (ICD-10-PCS; 2018-04-09)
PROC: 0DU907Z Supplement Duodenum with Autologous Tissue Substitute, Open Approach (ICD-10-PCS; principal; 2018-04-09 20:00)
DX: K26.5 Chronic or unspecified duodenal ulcer with perforation (principal); N17.9 Acute kidney failure, unspecified; K66.8 Other specified disorders of peritoneum; E27.8 Other specified disorders of adrenal gland; N28.1 Cyst of kidney, acquired; I13.10 Hypertensive heart and chronic kidney disease without heart failure, with stage 1 through stage 4 chronic kidney disease, or unspecified chronic kidney disease; N18.3 Chronic kidney disease, stage 3 (moderate); N20.0 Calculus of kidney; F17.210 Nicotine dependence, cigarettes, uncomplicated; E11.9 Type 2 diabetes mellitus without complications; E66.9 Obesity, unspecified; Z68.32 Body mass index [BMI] 32.0-32.9, adult; J45.909 Unspecified asthma, uncomplicated; Z91.14 Patient's other noncompliance with medication regimen; E86.0 Dehydration; E87.6 Hypokalemia; D64.9 Anemia, unspecified; Z79.84 Long term (current) use of oral hypoglycemic drugs
CPT/HCPCS: 36415; 71045-TC-FY; 71275-TC; 74174-TC; 80048; 80053; 82962; 83036; 83690; 83735; 84100; 84484; 85025; 85027; 85610; 86677; 86850; 86900; 86901; 87070; 87205; 87338; 93005; 93010; 94760; 99284-25; J0131; J7030

== ENCOUNTER → 2018-07-13 | Day surgery (SDC) | payer OTHER | LOC: JASU-ENDO 12:31 ==

== ENCOUNTER 2018-08-03 12:02 | Day surgery (SDC) | payer OTHER | END 2018-08-03 14:10 | disposition home or self-care (01) | LOC: JASU-ENDO 12:02 ==

== ENCOUNTER 2018-08-19 10:22 | Day surgery (SDC) | payer OTHER | END 2018-08-19 14:07 | disposition home or self-care (01) | LOC: JASU-ENDO 10:22 ==